=== PATIENT | female | born 2000 | race Two or more races ===

== ENCOUNTER 2022-04-28 18:03 | Emergency (ER) | payer OTHER ==
[~2022-04-28] VITALS: Ht 160 cm; Wt 63.8 kg
[2022-04-28 18:46] VITALS: BP 128/81
[2022-04-28] MEDS ORDERED: IBUP800T27 PO (20:29)
[2022-04-28] MEDS ORDERED: CYCL-837 PO (20:29)
[2022-04-28] MEDS ORDERED: KETOROLAC TROMETH 60MG/2ML VIAL IM ONE (20:30)
== END 2022-04-28 21:20 | disposition home or self-care (01) ==
LOC: ER 18:06
DX: S23.41XA Sprain of ribs, initial encounter (principal); Z90.49 Acquired absence of other specified parts of digestive tract; Z79.1 Long term (current) use of non-steroidal anti-inflammatories (NSAID); Z79.899 Other long term (current) drug therapy; X58.XXXA Exposure to other specified factors, initial encounter; Y93.89 Activity, other specified; Y92.89 Other specified places as the place of occurrence of the external cause; Y99.8 Other external cause status
CPT/HCPCS: 96372; 99283; J1885

== ENCOUNTER 2022-05-04 19:58 | Emergency (ER) | payer OTHER ==
[~2022-05-04] VITALS: Ht 170.2 cm; Wt 63.0 kg
[~2022-05-04 19:58] MED LIST: CYCL-837 PO; IBUP800T27 PO
[2022-05-04 21:37] VITALS: BP 124/72
[2022-05-04 21:52] LABS: Urine Bacteria FEW /hpf (None Seen); Urine Blood Negative /uL (Negative); Urine Specific Gravity 1.018 (1.001-1.035); Urine WBC 3 /hpf (0 - 5)
[2022-05-04 22:09] LABS: Basophils # (auto) 0.1 10 ^3/uL (0-0.2); Basophils % (auto) 0.6 % (0.0-2.0); Eosinophils # (auto) 0.7 10 ^3/uL (0-0.8); Eosinophils % (auto) 6.6 % (0.0-7.0); Hematocrit 38.4 % (36.0-46.0); Hemoglobin 13.2 g/dL (12.2-16.2); Lymphocytes # (auto) 1.6 10 ^3/uL (0.4-5.4); Lymphocytes % (auto) 15.9 % (10.0-50.0); Mean Corpuscular Hemoglobin 30.3 pg (28.0-32.0); Mean Corpuscular Hgb Conc. 34.4 g/dL (32.0-36.0); Mean Corpuscular Volume 88.1 fL (80.0-100.0); Monocytes # (auto) 0.9 10 ^3/uL (0-1.3); Monocytes % (auto) 8.7 % (0.0-12.0); Neutrophils % (auto) 68.2 % (37.0-80.0); Nucleated Red Blood Cells % 0.1 %; Red Blood Cells 4.36 10^6/uL (4.0-5.20); Red Cell Distribution Width 13.1 % (11.8-14.3); White Blood Cell 10.3 10^3/uL (4.4-10.8)
[2022-05-04 22:25] LABS: Albumin 2.8 g/dL (3.4-5.0); BUN/Creatinine Ratio 12.1; Calcium 8.8 mg/dL (8.5-10.1); Potassium 3.9 mmol/L (3.5-5.1)
[2022-05-04 22:28] LABS: Bilirubin, Total 0.3 mg/dL (0.2-1.0); Total Protein 7.2 g/dL (6.4-8.2)
== END 2022-05-05 02:29 | disposition home or self-care (01) ==
LOC: ER 20:04
DX: J98.11 Atelectasis (principal); E88.09 Other disorders of plasma-protein metabolism, not elsewhere classified; R10.9 Unspecified abdominal pain; Z90.49 Acquired absence of other specified parts of digestive tract
CPT/HCPCS: 36415; 74176; 80053; 81001; 81025; 83690; 85025